=== PATIENT | female | born 1930 | race Caucasian/White ===

== ENCOUNTER 2016-11-27 14:56 | Emergency (ER) | payer MEDICARE, OTHER ==
[~2016-11-27 14:56] MED LIST: ASPIR LOW81 MG PO; CLOPIDOGREL75 MG PO; COENZYME Q-10100 MG PO; COZAAR50 MG PO; FISH OIL 1,0001 EAC1 PO; ISORDIL TITRADO30 MG PO; ISOSORBIDE30 MG PO; LEVOTHYROXIN0.075 MG PO; MAGNESIUM250 M1 PO; MULTIVITAMIN FO1 CAP PO; NITROGLYCERIN0.4 MG SL; OMEGA-3 FISH1000 MG PO; POTASSIUM20 MEQ PO; RANITIDINE 150150 MG PO; SOTALOL80 MG PO; [UNRECOGNIZED DRUG - OTHER] PO
[2016-11-27] MEDS ORDERED: DULCOLAX5 M1 PO (16:24)
[2016-11-27] MEDS ORDERED: COZAAR 50MG50 MG/TAB PO (16:25)
[2016-11-27] MEDS ORDERED: CARDIZEM120 M1 PO (16:25)
[2016-11-27] MEDS ORDERED: FISH OIL 1,0001 EAC1 PO (16:26)
[2016-11-27] MEDS ORDERED: [UNRECOGNIZED DRUG - OTHER] PO (16:26)
[2016-11-27] MEDS ORDERED: MIRALAX17 GM PO (16:27)
[2016-11-27] MEDS ORDERED: POTASSIUM CHLO20 ME3 PO (16:28)
[2016-11-27] MEDS ORDERED: SOTALOL HCL120 MG PO (16:29)
[2016-11-27] MEDS ORDERED: ACID REDUCER 1150 MG PO (16:29)
[2016-11-27] MEDS ORDERED: COUMADIN 6MG6 MG/TAB PO (16:30)
[2016-11-27 16:53] VITALS: BP 159/88
[2016-11-27] MEDS ORDERED: VUSION OINTMENT50 GM TP (17:05)
== END 2016-11-27 17:18 | disposition home or self-care (01) ==
LOC: ED 14:56
DX: L30.8 Other specified dermatitis (principal); Z87.440 Personal history of urinary (tract) infections
CPT/HCPCS: A4353

== ENCOUNTER 2018-01-18 15:16 | Emergency (ER) | payer MEDICARE, OTHER ==
[~2018-01-18 15:16] MED LIST changes: +ACID REDUCER 1150 MG PO; +CARDIZEM120 M1 PO; +COUMADIN 6MG6 MG/TAB PO; +COZAAR 50MG50 MG/TAB PO; +DULCOLAX5 M1 PO; +MIRALAX17 GM PO; +POTASSIUM CHLO20 ME3 PO; +SOTALOL HCL120 MG PO; +VUSION OINTMENT50 GM TP; +[UNRECOGNIZED DRUG - OTHER] PO
[2018-01-18 16:02] LABS: BASO # 0.1 (0.02-0.10); EOS # 0.3 (0.04-0.40); EOS % 3.5 % (1.0-5.0); HEMATOCRIT 42.7 % (37.0-47.0); HEMOGLOBIN 14.2 g/dL (12.5-16.0); MEAN CELL VOLUME 92 fl (78-100); MEAN CORPUSCULAR HEMOGLOBIN 31 pg (27-31); MEAN CORPUSCULAR HGB CONC 33 g/dL (33-37); MONO # 0.9 (0.20-0.80); NEU # 5.7 (1.40-6.50); PLATELET COUNT 312 K/mm3 (130-400); RED BLOOD COUNT 4.64 M/mm3 (4.10-5.30); RED CELL DISTRIBUTION WIDTH 13.5 % (11.5-14.5); WHITE BLOOD COUNT 9.1 K/mm3 (4.8-10.8)
[2018-01-18] MEDS ORDERED: COENZYME Q-10100 M1 PO (16:09)
[2018-01-18] MEDS ORDERED: TYLENOL EXTRA500 M2 PO (16:09)
[2018-01-18] MEDS ORDERED: OSTERA TABLET1 EACH PO (16:09)
[2018-01-18] MEDS ORDERED: DICLOFENAC SOD100 GM TP (16:10)
[2018-01-18] MEDS ORDERED: CARDIZEM CD120 M1 PO (16:10)
[2018-01-18] MEDS ORDERED: CRANBERRY400 M2 PO (16:10)
[2018-01-18] MEDS ORDERED: MELATIN 3 MG-11 TAB PO (16:11)
[2018-01-18 16:13] LABS: BUN/CREATININE RATIO 29.4 (6.0-26.0); CALCIUM 9.3 mg/dL (8.4-10.2); POTASSIUM 4.5 mmol/L (3.6-5.0)
[2018-01-18 16:15] LABS: URINE APPEARANCE CLOUDY; URINE COLOR YELLOW
[2018-01-18 16:16] LABS: URINE BILIRUBIN NEGATIVE (NEGATIVE); URINE BLOOD TRACE (NEGATIVE); URINE GLUCOSE NEGATIVE (NEGATIVE); URINE KETONE NEGATIVE (NEGATIVE); URINE LEUKOCYTE ESTERASE 2+ (NEGATIVE); URINE MUCUS PRESENT (NOT PRESENT); URINE NITRATE POSITIVE (NEGATIVE); URINE PROTEIN(semi-quant) TRACE mg/dL (NEGATIVE); URINE UROBILINOGEN NORMAL (NORMAL); URINE WBC >50 /hpf (0-3)
[2018-01-18] MEDS ORDERED: MACROBID 100 M100 MG PO (16:35)
[2018-01-18 16:55] VITALS: BP 186/84
[2018-01-20] MEDS ORDERED: CEFDINIR300 MG PO (18:04)
== END 2018-01-18 16:55 | disposition home or self-care (01) ==
LOC: ED 15:16
PROVIDERS: Nurse Practitioner Primary Care
DX: N30.00 Acute cystitis without hematuria (principal); I25.10 Atherosclerotic heart disease of native coronary artery without angina pectoris; I10 Essential (primary) hypertension; Z95.1 Presence of aortocoronary bypass graft; F03.90 Unspecified dementia, unspecified severity, without behavioral disturbance, psychotic disturbance, mood disturbance, and anxiety; Z95.0 Presence of cardiac pacemaker; E89.0 Postprocedural hypothyroidism; Z88.1 Allergy status to other antibiotic agents; Z88.0 Allergy status to penicillin; Z88.2 Allergy status to sulfonamides; Z88.8 Allergy status to other drugs, medicaments and biological substances; Z79.01 Long term (current) use of anticoagulants

== ENCOUNTER 2018-01-25 19:01 | Observation (INO) | payer MEDICARE, OTHER ==
[~2018-01-25] VITALS: Ht 162.6 cm; Wt 58.7 kg
[~2018-01-25 19:01] MED LIST changes: +CARDIZEM CD120 M1 PO; +CEFDINIR300 MG PO; +COENZYME Q-10100 M1 PO; +CRANBERRY400 M2 PO; +DICLOFENAC SOD100 GM TP; +MACROBID 100 M100 MG PO; +MELATIN 3 MG-11 TAB PO; +OSTERA TABLET1 EACH PO; +TYLENOL EXTRA500 M2 PO
[2018-01-25 20:02] LABS: HEMATOCRIT 39.6 % (37.0-47.0); HEMOGLOBIN 13.6 g/dL (12.5-16.0); MEAN CELL VOLUME 90 fl (78-100); MEAN CORPUSCULAR HEMOGLOBIN 31 pg (27-31); MEAN CORPUSCULAR HGB CONC 34 g/dL (33-37); MEAN PLATELET VOLUME 10.5 fl (7.4-10.4); PLATELET COUNT 241 K/mm3 (130-400); RED BLOOD COUNT 4.42 M/mm3 (4.10-5.30); RED CELL DISTRIBUTION WIDTH 13.3 % (11.5-14.5); WHITE BLOOD COUNT 5.4 K/mm3 (4.8-10.8)
[2018-01-25 20:05] LABS: ALBUMIN 3.3 g/dL (3.5-5.0); BUN/CREATININE RATIO 35.8 (6.0-26.0); POTASSIUM 3.8 mmol/L (3.6-5.0); TOTAL BILIRUBIN 0.4 mg/dL (0.2-1.3); TOTAL PROTEIN 6.4 g/dL (6.3-8.2)
[2018-01-25 20:53] LABS: URINE APPEARANCE HAZY; URINE BILIRUBIN NEGATIVE (NEGATIVE); URINE BLOOD 50 ery/uL (NEGATIVE); URINE COLOR YELLOW; URINE GLUCOSE NEGATIVE (NEGATIVE); URINE KETONE NEGATIVE (NEGATIVE); URINE NITRATE NEGATIVE (NEGATIVE); URINE PROTEIN(semi-quant) TRACE mg/dL (NEGATIVE); URINE UROBILINOGEN NORMAL (NORMAL)
[2018-01-25 20:54] LABS: URINE LEUKOCYTE ESTERASE NEGATIVE (NEGATIVE)
[2018-01-25 21:00] LABS: LYMPHOCYTE 24 % (20-51); MONOCYTE 12 % (3-10); NEUTROPHILS 62 % (42-75)
[2018-01-25 21:17] VITALS: BP 164/63
[2018-01-25 22:32] VITALS: BP 190/84
[2018-01-25 23:10] VITALS: BP 183/87
[2018-01-26 03:12] VITALS: BP 138/68
[2018-01-26 06:48] VITALS: BP 134/66
[2018-01-26 10:45] VITALS: BP 140/67
[2018-01-26 15:24] VITALS: BP 138/80
[2018-01-26 18:29] VITALS: BP 140/78
[2018-01-26 23:17] VITALS: BP 154/85
[2018-01-27 03:00] VITALS: BP 138/73
[2018-01-27 06:25] VITALS: BP 162/80
[2018-01-27 10:35] VITALS: BP 141/57
[2018-01-27 10:49] VITALS: BP 141/57
== END 2018-01-27 11:55 ==
LOC: ED 19:01 → MED/SURG 21:40
PROVIDERS: ADMIT Nurse Practitioner Primary Care
DX: E86.0 Dehydration (principal); R53.81 Other malaise; I48.91 Unspecified atrial fibrillation; Z79.01 Long term (current) use of anticoagulants; I10 Essential (primary) hypertension; I69.898 Other sequelae of other cerebrovascular disease; F03.90 Unspecified dementia, unspecified severity, without behavioral disturbance, psychotic disturbance, mood disturbance, and anxiety; R62.7 Adult failure to thrive; K21.9 Gastro-esophageal reflux disease without esophagitis; I25.10 Atherosclerotic heart disease of native coronary artery without angina pectoris; Z95.1 Presence of aortocoronary bypass graft; Z95.0 Presence of cardiac pacemaker; E89.0 Postprocedural hypothyroidism; N39.0 Urinary tract infection, site not specified; R19.7 Diarrhea, unspecified; Z88.1 Allergy status to other antibiotic agents; Z88.0 Allergy status to penicillin; Z88.2 Allergy status to sulfonamides; Z88.8 Allergy status to other drugs, medicaments and biological substances; Z91.81 History of falling
CPT/HCPCS: G0378; J7030

== ENCOUNTER → 2018-02-01 | Outpatient (CLI) | payer MEDICARE, OTHER ==
[2018-01-27 10:49] VITALS: BP 141/57
[2018-02-01 13:19] LABS: URINE APPEARANCE CLOUDY; URINE COLOR YELLOW
[2018-02-01 13:20] LABS: URINE BILIRUBIN NEGATIVE (NEGATIVE); URINE BLOOD 50 ery/uL (NEGATIVE); URINE GLUCOSE NEGATIVE (NEGATIVE); URINE KETONE NEGATIVE (NEGATIVE); URINE LEUKOCYTE ESTERASE 2+ (NEGATIVE); URINE PROTEIN(semi-quant) 1+ mg/dL (NEGATIVE); URINE UROBILINOGEN NORMAL (NORMAL); URINE WBC >50 /hpf (0-3)
[2018-02-01 14:54] LABS: URINE NITRATE POSITIVE (NEGATIVE)
== END ==
LOC: LAB 04:30
PROVIDERS: Family Medicine
DX: N39.0 Urinary tract infection, site not specified (principal)

== ENCOUNTER 2018-02-05 14:53 | Emergency (ER) | payer MEDICARE, OTHER ==
[2018-02-05 16:00] LABS: BASO # 0.1 (0.02-0.10); EOS # 0.2 (0.04-0.40); EOS % 1.7 % (1.0-5.0); HEMATOCRIT 39.1 % (37.0-47.0); LYMPH# 1.5 (1.50-4.00); MEAN CELL VOLUME 92 fl (78-100); MEAN CORPUSCULAR HEMOGLOBIN 31 pg (27-31); MEAN CORPUSCULAR HGB CONC 33 g/dL (33-37); MEAN PLATELET VOLUME 9.9 fl (7.4-10.4); NEU # 5.9 (1.40-6.50); PLATELET COUNT 409 K/mm3 (130-400); RED BLOOD COUNT 4.26 M/mm3 (4.10-5.30); RED CELL DISTRIBUTION WIDTH 13.6 % (11.5-14.5); WHITE BLOOD COUNT 8.7 K/mm3 (4.8-10.8)
[2018-02-05 16:17] LABS: ALBUMIN 3.6 g/dL (3.5-5.0); CALCIUM 9.2 mg/dL (8.4-10.2); POTASSIUM 4.1 mmol/L (3.6-5.0); TOTAL BILIRUBIN 0.3 mg/dL (0.2-1.3); TOTAL PROTEIN 6.8 g/dL (6.3-8.2)
--- NOTE | 2018-02-05 16:34 | NUR ---
Pt spouse and family here w/ pt and have requested establishing primary care w/ Dr Paulson, who visits w/ pt in ED and has accepted to be pt's PCP. Order is obtained from Dr Paulson for HH services per family request to start when pt is discharged from either ED or Hospital admission, to be determined after ED provider assessment and work up. Home Health Orders are faxed to [facility], HH nurse will call hospital nurse's station to f/u on pt dispostion.
[2018-02-05 17:40] LABS: URINE APPEARANCE CLOUDY; URINE COLOR YELLOW
[2018-02-05 17:41] LABS: URINE BILIRUBIN NEGATIVE (NEGATIVE); URINE BLOOD TRACE (NEGATIVE); URINE GLUCOSE NEGATIVE (NEGATIVE); URINE KETONE NEGATIVE (NEGATIVE); URINE LEUKOCYTE ESTERASE 2+ (NEGATIVE); URINE NITRATE NEGATIVE (NEGATIVE); URINE PROTEIN(semi-quant) TRACE mg/dL (NEGATIVE); URINE UROBILINOGEN NORMAL (NORMAL); URINE WBC >50 /hpf (0-3)
[2018-02-05 17:42] LABS: URINE MUCUS PRESENT (NOT PRESENT)
[2018-02-05 17:59] LABS: PROTHROMBIN TIME 32.5 SECONDS (9.0-12.0)
[2018-02-05] MEDS ORDERED: LEVAQUIN 2250 MG/TAB PO (18:40)
[2018-02-05] MEDS ORDERED: [UNRECOGNIZED DRUG - OTHER] PO (19:55)
[2018-02-05] MEDS ORDERED: VOLTAREN GEL1% TP (19:58)
[2018-02-05 20:27] VITALS: BP 163/75
== END 2018-02-05 19:46 | disposition home or self-care (01) ==
LOC: ED 14:53
PROVIDERS: Family Medicine; Nurse Practitioner
DX: N39.0 Urinary tract infection, site not specified (principal); B96.5 Pseudomonas (aeruginosa) (mallei) (pseudomallei) as the cause of diseases classified elsewhere; Z79.01 Long term (current) use of anticoagulants

== ENCOUNTER → 2018-02-12 | Outpatient (CLI) | payer MEDICARE, OTHER ==
[2018-02-05 20:27] VITALS: BP 163/75
[~2018-02-12] MED LIST changes: +LEVAQUIN 2250 MG/TAB PO; +VOLTAREN GEL1% TP; +[UNRECOGNIZED DRUG - OTHER] PO
[2018-02-12 15:35] LABS: PROTHROMBIN TIME 32.6 SECONDS (9.0-12.0)
== END ==
LOC: LAB 14:54
PROVIDERS: Family Medicine
DX: I48.91 Unspecified atrial fibrillation (principal)

== ENCOUNTER → 2018-02-15 | Outpatient (CLI) | payer MEDICARE, OTHER ==
[2018-02-05 20:27] VITALS: BP 163/75
[2018-02-15 14:54] LABS: HEMATOCRIT 43.4 % (37.0-47.0); HEMOGLOBIN 14.4 g/dL (12.5-16.0); RED BLOOD COUNT 4.75 M/mm3 (4.10-5.30); RED CELL DISTRIBUTION WIDTH 13.7 % (11.5-14.5); WHITE BLOOD COUNT 10.3 K/mm3 (4.8-10.8)
[2018-02-15 15:30] LABS: BUN/CREATININE RATIO 29.2 (6.0-26.0); CALCIUM 9.6 mg/dL (8.4-10.2); POTASSIUM 4.1 mmol/L (3.6-5.0); TOTAL BILIRUBIN 0.4 mg/dL (0.2-1.3); TOTAL PROTEIN 7.9 g/dL (6.3-8.2)
== END ==
LOC: LAB 14:29
PROVIDERS: Family Medicine
DX: N39.0 Urinary tract infection, site not specified (principal); E55.9 Vitamin D deficiency, unspecified; E03.9 Hypothyroidism, unspecified; R53.81 Other malaise; D64.9 Anemia, unspecified; Z88.2 Allergy status to sulfonamides; Z88.8 Allergy status to other drugs, medicaments and biological substances

== ENCOUNTER → 2018-02-17 | Outpatient (CLI) | payer MEDICARE, OTHER ==
[2018-02-05 20:27] VITALS: BP 163/75
[2018-02-17 11:50] LABS: PROTHROMBIN TIME 25.6 SECONDS (9.0-12.0)
[2018-02-17 15:28] LABS: PH-URINE 6.5 (5.0 - 8.0); URINE APPEARANCE HAZY; URINE BILIRUBIN NEGATIVE (NEGATIVE); URINE BLOOD NEGATIVE (NEGATIVE); URINE COLOR YELLOW; URINE GLUCOSE NEGATIVE (NEGATIVE); URINE KETONE NEGATIVE (NEGATIVE); URINE LEUKOCYTE ESTERASE 1+ (NEGATIVE); URINE NITRATE NEGATIVE (NEGATIVE); URINE PROTEIN(semi-quant) NEGATIVE (NEGATIVE); URINE UROBILINOGEN NORMAL (NORMAL); URINE WBC 16-30 /hpf (0-3)
== END ==
LOC: LAB 11:16
PROVIDERS: Family Medicine
DX: I48.91 Unspecified atrial fibrillation (principal); N39.0 Urinary tract infection, site not specified; R53.81 Other malaise; Z88.2 Allergy status to sulfonamides; Z88.8 Allergy status to other drugs, medicaments and biological substances

== ENCOUNTER → 2018-03-09 | Outpatient (CLI) | payer MEDICARE, OTHER ==
[2018-03-09 12:24] LABS: PROTHROMBIN TIME 26.3 SECONDS (9.0-12.0)
== END ==
LOC: LAB 11:55
PROVIDERS: Family Medicine
DX: I48.91 Unspecified atrial fibrillation (principal)